=== PATIENT | male | born 2005 | race Caucasian/White ===

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

== ENCOUNTER → 2023-01-25 | Outpatient (CLI) | payer OTHER, MEDICAID ==
[2023-01-25 11:14] LABS: BASO % 0.7 % (0.0-1.0); EOS # 0.2 10^3/uL (0.0-0.5); EOS % 4.1 % (0.0-3.0); HEMATOCRIT 46.4 % (42.0-52.0); HEMOGLOBIN 15.3 g/dl (13.5-17.5); LYMPH # 1.6 10^3/uL (1.5-5.0); LYMPH % 27.4 % (24.0-44.0); MEAN CORPUSCULAR HEMOGLOBIN 28.7 pg (27.0-33.0); MEAN CORPUSCULAR VOLUME 86.9 fl (80.0-96.0); MONO # 0.4 10^3/uL (0.0-0.8); MONO % 7.4 % (2.0-8.0); NEUTROPHILS # 3.4 10^3/uL (1.5-8.5); NEUTROPHILS % 60.2 % (36.0-66.0); PLATELET COUNT, AUTOMATED 258 10^3/uL (150-450); RED BLOOD COUNT 5.34 10^6/uL (4.30-6.10); WHITE BLOOD COUNT 5.7 10^3/uL (4.0-10.0)
[2023-01-25 11:48] LABS: ALBUMIN 4.3 G/DL (3.2-5.2); ALKALINE PHOSPHATASE 109 U/L (46-116); ALT/SGPT 34 U/L (7.0-40); AST/SGOT 22 U/L (<34); BILIRUBIN,TOTAL 0.4 MG/DL (0.3-1.2); BLOOD UREA NITROGEN 20 MG/DL (9-23); CALCIUM LEVEL 10.4 MG/DL (8.5-10.1); CARBON DIOXIDE LEVEL 28 MMOL/L (20-31); CHLORIDE LEVEL 104 MMOL/L (98-107); CREATININE FOR GFR 0.73 MG/DL (0.70-1.30); GLUCOSE, FASTING 86 MG/DL (60-100); POTASSIUM SERUM 4.4 MMOL/L (3.5-5.1); SODIUM LEVEL 138 MMOL/L (136-145); THYROID STIMULATING HORMONE 1.198 uIU/ML (0.48-4.17); TOTAL PROTEIN 7.8 G/DL (5.7-8.2)
== END ==
LOC: M WUC 08:47
PROVIDERS: ATTEND Family Medicine
DX: R53.81 Other malaise (principal)

== ENCOUNTER 2024-01-10 18:25 | Inpatient (IN) | payer MEDICAID, OTHER ==
[~2024-01-10] VITALS: Ht 172.7 cm; Wt 62.8 kg
[2024-01-10] MEDS ORDERED: SERT50TA29 PO (18:38)
[2024-01-10] MEDS ORDERED: LORA-1041 PO (18:38)
[2024-01-10] MEDS ORDERED: MONT10TA97 PO (18:38)
[2024-01-10] MEDS ORDERED: FLUT12AE2 PO (19:46)
[2024-01-10] MEDS ORDERED: ALBU8.5H INH (19:46)
[2024-01-10] MEDS ORDERED: CENT1TAB2 PO (19:48)
[2024-01-10] MEDS ORDERED: VITAD400CA PO (19:48)
[2024-01-10 19:49] LABS: HEMATOCRIT 42.8 % (42.0-52.0); HEMOGLOBIN 14.9 g/dl (13.5-17.5); MEAN CORPUSCULAR HEMOGLOBIN 29.1 pg (27.0-33.0); MEAN CORPUSCULAR HGB CONC 34.8 g/dl (32.0-36.5); MEAN CORPUSCULAR VOLUME 83.6 fl (80.0-96.0); PLATELET COUNT, AUTOMATED 306 10^3/uL (150-450); RED BLOOD COUNT 5.12 10^6/uL (4.30-6.10)
[2024-01-10] MEDS ORDERED: GLUCCAP2 PO (19:51)
[2024-01-10] MEDS ORDERED: HOME MED LIST COMPLETE! XX SCH (19:55)
[2024-01-10 20:17] LABS: AMPHETAMINES LEVEL URINE NEGATIVE (NEGATIVE); BARBITURATES URINE NEGATIVE (NEGATIVE); BENZODIAZEPINES URINE NEGATIVE (NEGATIVE)
[2024-01-10 20:18] LABS: CANNABINOIDS URINE NEGATIVE (NEGATIVE); COCAINE METABOLITE URINE NEGATIVE (NEGATIVE); METHADONE URINE NEGATIVE (NEGATIVE); OPIATES URINE NEGATIVE (NEGATIVE); PHENCYCLIDINE URINE NEGATIVE (NEGATIVE)
[2024-01-10 20:19] LABS: ETHYL ALCOHOL (ETHANOL) 0.007 % (0.000-0.010)
[2024-01-10 20:21] LABS: ALBUMIN 4.2 G/DL (3.2-5.2); ALKALINE PHOSPHATASE 120 U/L (46-116); ALT/SGPT 36 U/L (7.0-40); AST/SGOT 26 U/L (<34); BILIRUBIN,DIRECT 0.2 MG/DL (<0.4); BILIRUBIN,TOTAL 0.5 MG/DL (0.3-1.2); BLOOD UREA NITROGEN 6 MG/DL (9-23); CALCIUM LEVEL 9.5 MG/DL (8.5-10.1); CARBON DIOXIDE LEVEL 25 MMOL/L (20-31); CHLORIDE LEVEL 104 MMOL/L (98-107); GLUCOSE, FASTING 95 MG/DL (60-100); POTASSIUM SERUM 3.6 MMOL/L (3.5-5.1); SALICYLATE LEVEL < 3.0 MG/DL (<30); SODIUM LEVEL 136 MMOL/L (136-145); TOTAL PROTEIN 7.1 G/DL (5.7-8.2)
[2024-01-10 20:22] LABS: THYROID STIMULATING HORMONE 1.757 uIU/ML (0.48-4.17)
[2024-01-10] MEDS ORDERED: diphenhydrAMINE 25MG CAP PO PRN (22:45)
[2024-01-10] MEDS ORDERED: MAALOX 30 ML SUSP *UDC PO PRN (22:45)
[2024-01-10] MEDS ORDERED: MOM 30ML SUSPENSION UDC PO PRN (22:45)
[2024-01-10] MEDS ORDERED: ACETAMINOPHEN TAB 650MG DOSE (2X325MG) PO PRN (22:45)
[2024-01-10 23:51] VITALS: BP 134/84; TEMP 97.7; O2SAT 100
[2024-01-11] MEDS: traZODone 50 MG TAB PO PRN (00:43)
[2024-01-11 07:05] VITALS: BP 134/66; TEMP 97.6; O2SAT 99
[2024-01-11] MEDS ORDERED: ALBUTEROL 90 MCG/ACT 8GM HFA INHALER INH PRN (07:45)
[2024-01-11] MEDS: FLUTICASONE HFA 110MCG 12GM INHALER (FLOVENT) INH SCH (09:11)
[2024-01-11] MEDS: VITAMIN D (CHOLECALCIFEROL) 400 INTERNATIONAL UNITS TAB PO SCH (12:04)
[2024-01-11] MEDS: SERTRALINE HCL 25 MG TABLET PO SCH (12:04)
[2024-01-11 16:43] VITALS: BP 132/82; TEMP 98.1; O2SAT 98
[2024-01-11] MEDS: MONTELUKAST 10 MG TAB PO SCH (20:21)
[2024-01-11] MEDS: LORATADINE 10 MG TAB PO SCH (20:21)
[2024-01-11] MEDS: LORazepam 0.5 MG TAB PO PRN (20:22)
[2024-01-12 06:28] VITALS: BP 126/74; TEMP 97.2; O2SAT 99
[2024-01-12 15:38] VITALS: BP 135/81; TEMP 98.5; O2SAT 97
[2024-01-13 06:40] VITALS: BP 117/68; TEMP 97.6; O2SAT 99
[2024-01-13] MEDS: IBUPROFEN 400MG TAB PO PRN (10:07)
[2024-01-13] MEDS: busPIRone 10 MG TAB PO SCH (11:27)
[2024-01-13 16:22] VITALS: BP 143/80; TEMP 98.1; O2SAT 100
[2024-01-13] MEDS: hydrOXYzine 50 MG TAB PO PRN (16:24)
[2024-01-13 18:31] VITALS: BP 143/80; TEMP 98.1; O2SAT 100
[2024-01-14 06:19] VITALS: BP 119/63; TEMP 97.4; O2SAT 98
[2024-01-14] MEDS: SERTRALINE HCL 25 MG TABLET PO ONE (11:56)
[2024-01-14 18:46] VITALS: BP 131/81; TEMP 97.4; O2SAT 99
[2024-01-15 06:39] VITALS: BP 110/65; TEMP 98.6; O2SAT 100
[2024-01-15] MEDS: SERTRALINE 100 MG TAB PO SCH (08:24)
[2024-01-15 18:32] VITALS: BP 117/70; TEMP 98.3
[2024-01-16 06:42] VITALS: BP 117/64; TEMP 97.5; O2SAT 98
[2024-01-16 18:10] VITALS: BP 145/84; TEMP 98; O2SAT 96
[2024-01-17 06:37] VITALS: BP 117/71; TEMP 97.8; O2SAT 97
[2024-01-17] MEDS ORDERED: TRAZ-252 PO (08:42)
[2024-01-17] MEDS ORDERED: HYDR50TA70 PO (08:42)
[2024-01-17] MEDS ORDERED: ZOLO100T PO (08:42)
[2024-01-17] MEDS ORDERED: BUSP10TA PO (08:42)
== END 2024-01-17 12:10 | disposition home or self-care (01) | DRG 753 ==
LOC: M ED 18:25 → M ED INP 22:45 → M PSY 23:51
PROVIDERS: ADMIT Student in an Organized Health Care Education/Training Program; ATTEND Student in an Organized Health Care Education/Training Program
DX: F32.89 Other specified depressive episodes (principal); R45.851 Suicidal ideations; F41.9 Anxiety disorder, unspecified; J45.909 Unspecified asthma, uncomplicated; Z63.5 Disruption of family by separation and divorce; Z81.8 Family history of other mental and behavioral disorders; Z79.899 Other long term (current) drug therapy

== ENCOUNTER 2024-01-24 13:14 | Emergency (ER) | payer MEDICAID, OTHER ==
[~2024-01-24] VITALS: Ht 172.7 cm; Wt 63.6 kg
[~2024-01-24 13:14] MED LIST changes: +ALBU8.5H INH; +BUSP10TA PO; +CENT1TAB2 PO; +FLUT12AE2 PO; +GLUCCAP2 PO; +HYDR50TA70 PO; +LORA-1041 PO; -METHACHOLINE KIT (J7674) INH ONE; +MONT10TA97 PO; +SERT50TA29 PO; +TRAZ-252 PO; +VITAD400CA PO; +ZOLO100T PO
[2024-01-24 14:41] LABS: BASO % 0.6 % (0.0-1.0); EOS # 0.1 10^3/uL (0.0-0.5); EOS % 0.7 % (0.0-3.0); HEMATOCRIT 46.3 % (42.0-52.0); MEAN CORPUSCULAR HEMOGLOBIN 29.1 pg (27.0-33.0); MEAN CORPUSCULAR HGB CONC 34.6 g/dl (32.0-36.5); MEAN CORPUSCULAR VOLUME 84.3 fl (80.0-96.0); MONO # 0.7 10^3/uL (0.0-0.8); NEUTROPHILS # 4.9 10^3/uL (1.5-8.5); NEUTROPHILS % 73.6 % (36.0-66.0); PLATELET COUNT, AUTOMATED 310 10^3/uL (150-450); RED BLOOD COUNT 5.49 10^6/uL (4.30-6.10); WHITE BLOOD COUNT 6.7 10^3/uL (4.0-10.0)
[2024-01-24 15:05] LABS: BLOOD UREA NITROGEN 8 MG/DL (9-23); CALCIUM LEVEL 9.7 MG/DL (8.5-10.1); CARBON DIOXIDE LEVEL 28 MMOL/L (20-31); CHLORIDE LEVEL 101 MMOL/L (98-107); CK-MB VALUE MASS < 1.0 NG/ML (<3.6); CPK CREATINE PHOSPHOKINASE 114 U/L (46-171); CREATININE FOR GFR 0.63 MG/DL (0.70-1.30); GLUCOSE, FASTING 91 MG/DL (60-100); MB/CK RELATIVE INDEX 0.87 (< OR =4); POTASSIUM SERUM 4.1 MMOL/L (3.5-5.1); SODIUM LEVEL 134 MMOL/L (136-145)
[2024-01-24 15:06] LABS: INR 1.21; PARTIAL THROMBOPLASTIN TIME 28.2 SECONDS (24.8-34.2); PROTHROMBIN TIME 14.9 SECONDS (12.5-14.5)
[2024-01-24 16:06] LABS: CK-MB VALUE MASS < 1.0 NG/ML (<3.6)
[2024-01-24 16:11] LABS: CPK CREATINE PHOSPHOKINASE 94 U/L (46-171); MB/CK RELATIVE INDEX 1.06 (< OR =4)
[2024-01-24] MEDS: KETOROLAC 30 MG/ML 1ML VIAL IV ONE (16:11)
[2024-01-24] MEDS: ONDANSETRON 4MG 2ML VIAL IV ONE (16:11)
[2024-01-24] MEDS: NS 1,000 ML IV ONE (16:12)
[2024-01-24 16:46] LABS: D-DIMER QUANT < 0.27 ug/mL (<0.5)
[2024-01-24 17:30] VITALS: BP 133/89; O2SAT 97
[2024-01-24 17:38] VITALS: TEMP 98.2
== END 2024-01-24 17:47 | disposition home or self-care (01) ==
LOC: M ED 13:14
DX: R00.2 Palpitations (principal); R00.0 Tachycardia, unspecified; J45.909 Unspecified asthma, uncomplicated; Z79.51 Long term (current) use of inhaled steroids; Z79.899 Other long term (current) drug therapy; Z79.810 Long term (current) use of selective estrogen receptor modulators (SERMs)
CPT/HCPCS: 71046; 80048; 82550; 82553; 83880; 85025; 85379; 85610; 85730; 93005; 93041; 94760; 96361; 96374; 99285; J1885; J2405

== ENCOUNTER → 2024-03-04 | Outpatient (REF) | payer OTHER | LOC: M LAB REF 11:55 | PROVIDERS: ATTEND Family Medicine | DX: L65.9 Nonscarring hair loss, unspecified (principal) ==

== ENCOUNTER → 2024-10-06 | Outpatient (REF) | payer OTHER | LOC: M LAB REF 11:05 | PROVIDERS: ATTEND Physician Assistant | DX: K92.1 Melena (principal); R19.7 Diarrhea, unspecified ==

== ENCOUNTER → 2024-12-14 | Outpatient (CLI) | payer OTHER | LOC: M WUC 15:31 | PROVIDERS: ATTEND Internal Medicine Gastroenterology | DX: K29.81 Duodenitis with bleeding (principal); R19.7 Diarrhea, unspecified ==

== ENCOUNTER → 2025-01-07 | Outpatient (REF) | payer OTHER ==
[2025-01-07 17:57] LABS: Trichomonas vaginalis (AMP) NOT DETECTED (NEGATIVE)
[2025-01-07 18:22] LABS: ALBUMIN 4.8 G/DL (3.2-5.2); ALKALINE PHOSPHATASE 91 U/L (40-129); ALT/SGPT 33 U/L (7.0-40); AST/SGOT 28 U/L (<34); BILIRUBIN,TOTAL 0.3 MG/DL (0.3-1.2); BLOOD UREA NITROGEN 20 MG/DL (9-23); CALCIUM LEVEL 9.8 MG/DL (8.5-10.1); CARBON DIOXIDE LEVEL 28 MMOL/L (20-31); CHLORIDE LEVEL 101 MMOL/L (98-107); CHOLESTEROL LEVEL 162 MG/DL (<200); CHOLESTEROL RISK RATIO 5.24 (<5); CREATININE FOR GFR 0.72 MG/DL (0.70-1.30); GLOMERULAR FILTRATION RATE > 60.0 (>60); GLUCOSE, FASTING 83 MG/DL (60-100); HDL CHOLESTEROL 30.9 MG/DL (>40); LDL CHOLESTEROL 91.5 MG/DL (<100); NON-HDL-C 131.1 MG/DL; POTASSIUM SERUM 4.5 MMOL/L (3.5-5.1); SODIUM LEVEL 138 MMOL/L (136-145); THYROID STIMULATING HORMONE 1.538 uIU/ML (0.55-4.78); TOTAL PROTEIN 8.3 G/DL (5.7-8.2); TRIGLYCERIDES LEVEL 198 MG/DL (<150)
[2025-01-07 18:24] LABS: TOTAL 25(OH) VITAMIN D 42.2 NG/ML (20.0-100.0)
[2025-01-07 18:49] LABS: HEMOGLOBIN A1c 4.8 % (4.0-6.0)
[2025-01-07 18:54] LABS: HIV 1&2 SCREEN NEGATIVE (NEGATIVE)
[2025-01-07 19:02] LABS: HEPATITIS C VIRUS ABY INDEX 0.24 INDEX (<0.8)
[2025-01-07 20:25] LABS: GC DNA AMPLIFICATION NEGATIVE (NEGATIVE)
== END ==
LOC: M LAB REF 16:19
PROVIDERS: ATTEND Physician Assistant
DX: Z11.9 Encounter for screening for infectious and parasitic diseases, unspecified (principal); K90.0 Celiac disease; E55.9 Vitamin D deficiency, unspecified; Z13.220 Encounter for screening for lipoid disorders

== ENCOUNTER 2025-07-05 13:17 | Outpatient (RCR) | payer OTHER | END 2025-08-01 | LOC: M ST 13:17 | PROVIDERS: ATTEND Otolaryngology | DX: R49.0 Dysphonia (principal) ==